=== PATIENT | male | born 1965 | race Caucasian/White ===

== ENCOUNTER 2023-12-29 17:37 | Emergency (ER) | payer OTHER ==
[~2023-12-29] VITALS: Ht 177.8 cm; Wt 92.5 kg
[2023-12-29 17:55] VITALS: TEMP 98.2
[2023-12-29] MEDS ORDERED: LORAZEPAM 1 MG TABLET ONE (18:00)
[2023-12-29] MEDS ORDERED: ONDANSETRON 4 MG TAB.RAPDIS ONE (18:01)
[2023-12-29] MEDS: ONDANSETRON 4 MG TAB.RAPDIS SL ONE (18:04)
[2023-12-29] MEDS: LORAZEPAM 1 MG TABLET PO ONE (18:05)
[2023-12-29] MEDS ORDERED: HALOPERIDOL LACTATE INJ 5 MG/ML VIAL ONE (19:32)
[2023-12-29] MEDS: HALOPERIDOL LACTATE INJ 5 MG/ML VIAL IV ONE (19:40)
[2023-12-29] MEDS: IV NS 0.9% 1,000 ML BAG IV ONE (19:40)
[2023-12-29] MEDS ORDERED: ONDA4TAB11 PO (20:33)
[2023-12-29 20:39] VITALS: BP 148/98; O2SAT 100
== END 2023-12-29 20:40 | disposition home or self-care (01) ==
LOC: ER 17:42
DX: F12.929 Cannabis use, unspecified with intoxication, unspecified (principal); R11.0 Nausea; I10 Essential (primary) hypertension; E78.00 Pure hypercholesterolemia, unspecified
CPT/HCPCS: 99283; 96374; 96361; J1630; J7030; Q0162